=== PATIENT | male | born 1960 | race Caucasian/White ===

== ENCOUNTER 2020-09-23 10:20 | Outpatient (CLI) | payer OTHER, SELFPAY ==
--- NOTE | ~2020-09-23 | CT_ITS ---
EXAMINATION: CT chest wo con DATE: 09/23/2020 10:58 INDICATION: multiple nodules of lung,oth nonspecific abn finding on lung TECHNIQUE: Computed tomography (CT) of the chest was performed without intravenous contrast. Addition al 3D reconstructions utilizing coronal maximum intensity projection (MIP) were performed. Automated exposure control and iterative reconstruction technique were employed. The dose-length product was 33 9.97 mGy-cm. COMPARISON: 10/14/2019 FINDINGS: Mild paraseptal emphysema with upper lung predominance. No interval change in a 6 mm and immediately adjacent to millimeter right middle lobe nodules, a 5 mm right lower lobe nodule, 6 mm subpleural saida gular nodule, 7 mm pleural-based left lower lobe nodule, 2 mm right upper lobe nodule and 2 mm calcif ied left lower lobe nodule. No new or enlarging pulmonary nodules identified. Heart size is normal. A therosclerotic coronary artery calcifications. No pericardial or pleural effusion. Thoracic aorta is normal in caliber. No pathologically enlarged thoracic lymphadenopathy. Mild bilateral gynecomastia. No interval change in a 2.3 cm relatively low density right adrenal nodule which given attenuation a nd lack of interval change would be most consistent with an adenoma. There are bridging osteophytes a t multiple levels in the spine, consistent with diffuse idiopathic skeletal hyperostosis (DISH). IMPRESSION: 1. No interval change in several small bilateral lung nodules. Lung-RADS category 2: Benign appearanc e or behavior. Continue annual screening with noncontrast low-dose chest CT in 12 months. Reviewed, dictated and finalized at [facility]. HANDLING SUPERVISOR IMPRESSION: 1. No interval change in several small bilateral lung nodules. Lung-RADS catego ry 2: Benign appearance or behavior. Continue annual screening with noncontrast low-dose chest CT in 12 months.
== END 2020-09-23 10:21 | disposition home or self-care (01) ==
PROVIDERS: PCP Internal Medicine Infectious Disease; Visit Provider Internal Medicine Infectious Disease
DX: R91.8 Other nonspecific abnormal finding of lung field (principal); J43.9 Emphysema, unspecified; I25.10 Atherosclerotic heart disease of native coronary artery without angina pectoris; N62 Hypertrophy of breast
CPT/HCPCS: 71250

== ENCOUNTER 2021-10-29 17:58 | Outpatient (CLI) | payer OTHER, SELFPAY ==
--- NOTE | ~2021-10-29 | CT_ITS ---
EXAMINATION:CT lung screening DATE: 10/29/2021 18:28 INDICATION: Personal history of nicotine dependence. Smoker who quit 2 years ago with 30 pack year hi story. TECHNIQUE: Computed tomography (CT) of the chest was performed without intravenous contrast. Automate d exposure control and iterative reconstruction technique were employed. The dose-length product (DLP ) was 144.82 mGy-cm. COMPARISON: Chest CT 09/23/2020 FINDINGS: There is mild emphysema. There are multiple scattered nodules measuring up to 6 mm in right middle lobe without change. There is mild atelectasis bilaterally. There are subsegmental groundglas s opacities in left lower lobe. There is a stable pleural-based 7 mm nodule in left lower lobe. No pl eural effusion. The heart size is normal. There are coronary artery calcifications. No pericardial ef fusion. There is a 2.5 cm mass in right adrenal gland measuring soft tissue attenuation without correa e in size, likely an adenoma. There are bridging endplate osteophytes at multiple levels in the spine , consistent with diffuse idiopathic skeletal hyperostosis (DISH). IMPRESSION: 1. Lung-RADS category 2: Benign appearance or behavior. Continue annual screening with noncontrast lo w-dose chest CT in 12 months. Reviewed, dictated and finalized at location [facility]. DISPATCHER IMPRESSION: 1. Lung-RADS category 2: Benign appearance or behavior. Continue annual screeni ng with noncontrast low-dose chest CT in 12 months.
== END 2021-10-29 17:59 | disposition home or self-care (01) ==
LOC: ANHIMG 18:02
PROVIDERS: PCP Internal Medicine Infectious Disease; Visit Provider Internal Medicine Infectious Disease
DX: Z12.2 Encounter for screening for malignant neoplasm of respiratory organs (principal); Z87.891 Personal history of nicotine dependence
CPT/HCPCS: 71271

== ENCOUNTER 2024-10-19 13:37 | Outpatient (CLI) | payer OTHER, SELFPAY ==
--- NOTE | ~2024-10-19 | CT_ITS ---
CT of the Abdomen and Pelvis: Indication: Abdominal pain Technique: 2.5 mm axial scans were obtained through the abdomen and pelvis following intravenous adm inistration of 100 cc of Omnipaque 350. Dose reduction technique was used on this scan by utilizing a utomated exposure control and iterative reconstruction technique. The dose-length product (DLP) was 5 54.16 mGy-cm. COMPARISON: Chest CT dated 10/29/2021 Findings: Scans through the lung bases demonstrate stable 4 mm right basilar pulmonary nodule (axial image 7).. There is diffuse hepatic steatosis. The spleen, pancreas, gallbladder, left adrenal gland, and left k idney are within normal limits. Aortic aneurysm measures 4.9 cm in diameter, with aortic stent graft in place. Right adrenal nodule measures 2.4 cm in diameter, stable from prior exam.. Cortical scarrin g at the right kidney with small cystic change or posttreatment change. No lymphadenopathy. No bowel obstruction or bowel wall thickening. There is no evidence to suggest acute appendicitis. Images through the pelvis were performed. Urinary bladder unremarkable. Prostate gland enlarged. No a scites. Impression: No acute abnormality evident. 2.4 cm right adrenal nodule. Stability since 2020 is compatible with benign adenoma. 4.9 cm abdominal aortic aneurysm with aortic stent graft in place. Reviewed, dictated and finalized at location . RO[employer] P[employer]ENGER AGENT Impression: No acute abnormality evident. 2.4 cm right adrenal nodule. Stability since 2020 is compatible with benign raheel noma. 4.9 cm abdominal aortic aneurysm with aortic stent graft in place.
[2024-10-19 14:12] LABS: Estimated Glomerular Filt Rate > 60
== END 2024-10-19 13:38 | disposition home or self-care (01) ==
LOC: ANHIMG 13:45
PROVIDERS: PCP Internal Medicine Infectious Disease; Visit Provider Internal Medicine Infectious Disease
DX: R10.9 Unspecified abdominal pain (principal); D35.01 Benign neoplasm of right adrenal gland; I71.40 Abdominal aortic aneurysm, without rupture, unspecified
CPT/HCPCS: 74177; Q9967